=== PATIENT | female | born 1930 | race Caucasian/White ===

== ENCOUNTER 2018-02-25 21:42 | Emergency (ER) | payer MEDICARE, MEDICAID ==
[2018-02-25 23:32] LABS: CHLORIDE,CL 102 mmol/L (101-111); SODIUM,NA 134 mmol/L (135-145)
[2018-02-26] MEDS ORDERED: Acetaminophen 325 MG Tab PO ONE (00:08)
--- NOTE | 2018-02-26 00:08 | EDM.PDOC ---
ED HPI GENERAL MEDICAL PROBLEM - General Chief Complaint: Lower Extremity Injury/Pain Stated Complaint: KNEE INJURY Time Seen by Provider: 02/25/18 21:45 Source of Information: Reports: Patient, EMS, Family History Limitations: Reports: No Limitations - History of Present Illness INITIAL COMMENTS - FREE TEXT/NARRATIVE: C/o right knee and leg pain. Stated felt weak like legs were going to give out while getting out of bed, lowered self to ground to knees then crawled to kitchen, pressed medical alert as unable to get up. Denied falling. Had similar episode this am. No recent fever, chils. No NVD. no URI or urinary complaints. Lives at home alone. Right Leg Pain Score (Numeric/FACES): 7 - Related Data Allergies Allergy/AdvReac Type Severity Reaction Status Date / Time atorvastatin [From Lipitor] Allergy Muscle Verified 09/22/16 13:06 Aches erythromycin base Allergy Hives Verified 09/22/16 13:06 ezetimibe Allergy Cannot Verified 09/22/16 13:06 Remember fluvastatin Allergy Cannot Verified 09/22/16 13:06 Remember losartan Allergy Cannot Verified 09/22/16 13:06 Remember pravastatin Allergy Cannot Verified 09/22/16 13:06 Remember simvastatin Allergy Cannot Verified 09/22/16 13:06 Remember tramadol Allergy Cannot Verified 09/22/16 13:06 Remember Home Meds: Home Meds Insulin Glarg,Human.Rec.Analog [LantUS Solostar] 62 units SQ BEDTIME 09/22/16 [ History] Lisinopril [Zestril] 2.5 mg PO DAILY 09/22/16 [History] oxyCODONE HCl/Acetaminophen [Endocet 5-325 Tablet] 1 tab PO Q4H PRN 10/03/16 [ History] Past Medical History HEENT History: Reports: Cataract, Impaired Vision Musculoskeletal History: Reports: Other (See Below) Endocrine/Metabolic History: Reports: Diabetes, Type II - Past Surgical History HEENT Surgical History: Reports: Cataract Surgery GI Surgical History: Reports: Cholecystectomy Musculoskeletal Surgical History: Reports: None, Hip Replacement Social & Family History - Tobacco Use Smoking Status *Q: Never Smoker Second Hand Smoke Exposure: No - Caffeine Use Caffeine Use: Reports: Coffee, Tea - Recreational Drug Use Recreational Drug Use: No Review of Systems - Review of Systems Review Of Systems: ROS reveals no pertinent complaints other than HPI. ED EXAM, GENERAL - Physical Exam Exam: See Below Exam Limited By: No Limitations General Appearance: Alert, No Apparent Distress, Thin Eye Exam: Bilateral Eye: EOMI Ears: Normal External Exam, Normal TMs Nose: Normal Inspection Throat/Mouth: Normal Inspection Head: Atraumatic, Normocephalic Neck: Normal Inspection Respiratory/Chest: No Respiratory Distress, Lungs Clear, Normal Breath Sounds Cardiovascular: Normal Peripheral Pulses, Regular Rate, Rhythm, No Edema GI/Abdominal: Normal Bowel Sounds Back Exam: Normal Inspection. No: Paraspinal Tenderness, Vertebral Tenderness Extremities: Leg Pain (right knee) Neurological: Alert, Oriented, Normal Cognition, No Motor/Sensory Deficits Psychiatric: Normal Affect Skin Exam: Warm, Dry, Intact, Normal Color. No: Ecchymosis Course - Vital Signs Last Recorded V/S: Last Vital Signs Temp 98.4 F 02/26/18 00:12 Pulse 80 02/26/18 00:12 Resp 18 02/26/18 00:12 BP 113/62 02/26/18 00:12 Pulse Ox 95 02/26/18 00:12 - Orders/Labs/Meds Orders: Active Orders 24 hr Category Date Time Status UA W/MICROSCOPIC [URIN] Stat Lab 02/25/18 23:48 Ordered Labs: Laboratory Tests 02/25/18 02/25/18 02/25/18 Range/Units 22:50 22:50 23:48 WBC 8.5 (5.0-10.0) 10^3/uL RBC 4.59 (4.2-5.4) 10^6/uL Hgb 13.9 (12.0-16.0) g/dL Hct 40.9 (37.0-47.0) % MCV 89.1 (80-100) fL MCH 30.3 (27.0-34.0) pg MCHC 34.0 (33.0-35.0) g/dL Plt Count 208 (150-450) 10^3/uL Neut % (Auto) 61.7 (42.2-75.2) % Lymph % (Auto) 28.2 (20.5-50.1) % [place] % (Auto) 8.3 H (2-8) % Eos % (Auto) 1.6 (1.0-3.0) % Baso % (Auto) 0.2 (0.0-1.0) % Sodium 134 L (135-145) mmol/L Potassium 3.9 (3.6-5.0) mmol/L Chloride 102 (101-111) mmol/L Carbon Dioxide 25.0 (21.0-31.0) mmol/L Anion Gap 10.9 BUN 10 (7-18) mg/dL Creatinine 0.8 (0.6-1.3) mg/dL Est Cr Clr Drug Dosing TNP Estimated GFR (MDRD) > 60 BUN/Creatinine Ratio 12.50 Glucose 264 H (74-105) mg/dL Calcium 9.0 (8.4-10.2) mg/dl Total Bilirubin 0.5 (0.2-1.0) mg/dL AST 29 (10-42) IU/L ALT 22 (10-60) IU/L Alkaline Phosphatase 46 (42-121) IU/L Total Protein 6.5 L (6.7-8.2) g/dl Albumin 3.7 (3.2-5.5) g/dl Globulin 2.8 Albumin/Globulin Ratio 1.32 Urine Color Yellow (YELLOW) Urine Appearance Clear (CLEAR) Urine pH 7.5 (5.0-9.0) Ur Specific [place] 1.020 (1.005-1.030) Urine Protein Negative (NEGATIVE) Urine Glucose (UA) 100 H (NEGATIVE) Urine Ketones Trace H (NEGATIVE) Urine Occult Blood Negative (NEGATIVE) Urine Nitrite Negative (NEGATIVE) Urine Bilirubin Negative (NEGATIVE) Urine Urobilinogen 0.2 (0.2-1.0) mg/dL Ur Leukocyte Esterase Negative (NEGATIVE) Urine RBC 0-5 /HPF Urine WBC 0-5 (0-5/HPF) /HPF Ur Epithelial Cells Occasional /HPF Urine Bacteria Few (0-FEW/HPF) /HPF Meds: Medications Discontinued Medications Generic Name Dose Route Start Last Admin Trade Name Freq PRN Reason Stop Dose Admin Acetaminophen 650 mg 02/26/18 00:08 02/26/18 00:13 Tylenol PO 02/26/18 00:09 650 mg NOW ONE Administration - Radiology Interpretation Free Text/Narrative:: right knee and pelvis negative. - Re-Assessments/Exams Free Text/Narrative Re-Assessment/Exam: 02/26/18 04:18 Family at bedside results relayed. Recommend family to stay with patient tonight and better determine ability to maintain in home environment. Departure - Departure Time of Disposition: 00:03 Disposition: Home, Self-Care 01 Condition: Fair Clinical Impression: Weakness Knee pain, right Qualifiers: Chronicity: acute Qualified Code(s): M25.561 - Pain in right knee - Discharge Information Instructions: Knee Sprain, Adult, [id number] Referrals: Sonia Rand PA [Primary Care Provider] - Forms: ED Department Discharge Additional Instructions: ambulate with walker tylenol 650mg every 4 hours as needed for pain follow up if worsens - My Orders Last 24 Hours: My Active Orders 02/25/18 23:48 UA W/MICROSCOPIC [URIN] Stat - Assessment/Plan Last 24 Hours: My Active Orders 02/25/18 23:48 UA W/MICROSCOPIC [URIN] Stat
[2018-02-26 00:13] VITALS: BP 113/62
== END 2018-02-26 00:22 | disposition home or self-care (01) ==
LOC: DL.ED 21:42
DX: M25.561 Pain in right knee (principal); R53.1 Weakness; E11.9 Type 2 diabetes mellitus without complications; Z88.8 Allergy status to other drugs, medicaments and biological substances; Z88.1 Allergy status to other antibiotic agents; Z88.5 Allergy status to narcotic agent; Z79.4 Long term (current) use of insulin
CPT/HCPCS: 36415; 72192; 73562; 80053; 81001; 85025; 99284; A9270; 99283

== ENCOUNTER 2021-08-14 12:30 | Inpatient (IN) | payer MEDICARE, MEDICAID ==
[2021-08-14 13:29] LABS: ANION GAP 13.1 mEq/L (7-13); CHLORIDE,CL 104 mmol/L (98-107); SODIUM,NA 140 mmol/L (136-145)
--- NOTE | 2021-08-14 14:07 | CT ---
PROCEDURE INFORMATION: Exam: CT Head Without Contrast Exam date and time: 08/14/2021 12:56 PM Age: 89 years old Clinical indication: Dizziness TECHNIQUE: Imaging protocol: Computed tomography of the head without contrast. Radiation optimization: All CT scans at this facility use at least one of these dose optimization techniques: automated exposure control; mA and/or kV adjustment per patient size (includes targeted exams where dose is matched to clinical indication); or iterative reconstruction. COMPARISON: CT Head wo Cont 08/10/2015 12:29 AM FINDINGS: Brain: Atrophy. No hemorrhage. Chronic periventricular white matter changes.. No mass effect. Cerebral ventricles: Stable asymmetric enlargement of the left ventricle. Paranasal sinuses: Visualized sinuses are unremarkable. No fluid levels. Mastoid air cells: Visualized mastoid air cells are well aerated. Bones/joints: Unremarkable. No acute fracture. Soft tissues: Unremarkable. IMPRESSION: No acute intracranial abnormality.
[2021-08-14] MEDS ORDERED: Meclizine 12.5 MG Tab PO ONE (14:50)
[2021-08-14] MEDS ORDERED: Sodium Chloride 0.9% 500 ML IV SCH (15:00)
--- NOTE | 2021-08-14 16:58 | PCM.HP ---
H&P History of Present Illness - General Date of Service: 08/14/21 Source of Information: Patient, Old Records, Provider (ER) History Limitations: Reports: Other (poor historian) - History of Present Illness Initial Comments - Free Text/Narative: Patient was brought to ER form her assisted living with c/o waking this morning with "room spin" dizziness. Denies fall or head injury. Denies chest pain, rapid or irregular HR, N/V/D, fever, chills, cough, SOB, or dysuria. She reports similar episode in the past. Pt states that laying still alleviates the dizziness. Moving her body, or even head movement makes the dizziness worse. She laid on her bed all day to minimize the dizziness, and she missed her insulin then finally called the ambulance. CT in ER showed no acute findings. Pt was prescribed Meclizine in ER and she is now symptoms free. - Related Data Allergies/Adverse Reactions: Allergies Allergy/AdvReac Type Severity Reaction Status Date / Time atorvastatin [From Lipitor] Allergy Muscle Verified 08/14/21 12:43 Aches erythromycin base Allergy Hives Verified 08/14/21 12:43 ezetimibe Allergy Cannot Verified 08/14/21 12:43 Remember fluvastatin Allergy Cannot Verified 08/14/21 12:43 Remember losartan Allergy Cannot Verified 08/14/21 12:43 Remember pravastatin Allergy Cannot Verified 08/14/21 12:43 Remember simvastatin Allergy Cannot Verified 08/14/21 12:43 Remember tramadol Allergy Cannot Verified 08/14/21 12:43 Remember Home Medications: Home Meds Acetaminophen [Tylenol Extra Strength] 500 mg PO Q4H PRN 08/14/21 [History] Ascorbic Acid [Vitamin C] 500 mg PO DAILY 08/14/21 [History] Aspirin [Halfprin] 81 mg PO DAILY 08/14/21 [History] Ca/D3/Mag Ox/Zinc/Event Av Operator/Octavio/Bor [Calcium 600-D3 Plus Caplet] 1 tab PO DAILY 08/14/21 [History] Calcium Carbonate [Tums] 500 mg PO Q4H PRN 08/14/21 [History] DULoxetine HCl [Cymbalta] 30 mg PO DAILY 08/14/21 [History] Diclofenac Sodium [Voltaren Arthritis Pain] 1 applic TOP Q12H PRN 08/14/21 [History] Fish Oil/DHA/EPA [Fish Oil 1,200 MG] 1 cap PO DAILY 08/14/21 [History] Insulin Glarg,Human.Rec.Analog [Lantus] 37 units SQ DAILY 08/14/21 [History] Magnesium Hydroxide [Milk of Magnesia] 30 ml PO DAILY PRN 08/14/21 [History] Multivitamin [Multi-Day Vitamins] 1 tab PO DAILY 08/14/21 [History] metFORMIN [Glucophage XR] 500 mg PO BIDMEALS 08/14/21 [History] polyethylene glycoL 3350 [MiraLAX] 1 pack PO DAILY PRN 08/14/21 [History] Past Medical History HEENT History: Reports: Cataract, Impaired Vision Musculoskeletal History: Reports: Other (See Below) Endocrine/Metabolic History: Reports: Diabetes, Type II - Past Surgical History HEENT Surgical History: Reports: Cataract Surgery GI Surgical History: Reports: Cholecystectomy Musculoskeletal Surgical History: Reports: None, Hip Replacement Social & Family History - Tobacco Use Tobacco Use Status *Q: Never Tobacco User Second Hand Smoke Exposure: No - Caffeine Use Caffeine Use: Reports: None - Recreational Drug Use Recreational Drug Use: No H&P Review of Systems - Review of Systems: Review Of Systems: Unable To Obtain Reason Not Obtained: poor historian General: Denies: Fever, Chills HEENT: Reports: Vertigo Pulmonary: Denies: Shortness of Breath Cardiovascular: Denies: Chest Pain Gastrointestinal: Denies: Abdominal Pain, Nausea Genitourinary: Denies: Dysuria Psychiatric: Denies: Confusion Neurological: Denies: Confusion Exam - Exam Exam: See Below - Vital Signs Vital Signs: Last Vital Signs Temp 98.1 F 08/14/21 12:43 Pulse 84 08/14/21 12:43 Resp 20 08/14/21 12:43 BP 131/67 08/14/21 12:43 Pulse Ox 99 08/14/21 12:43 Weight: 171 lb - Exam Quality Assessment: No: Supplemental Oxygen General: Alert, Oriented, Cooperative. No: Mild Distress HEENT: EOMI Neck: Supple Cardiovascular: Regular Rate, Regular Rhythm GI/Abdominal Exam: Soft, Non-Tender (Female) Exam: Deferred Back Exam: Normal Inspection Extremities: Normal Inspection, No Pedal Edema Skin: Warm, Dry Neurological: Cranial Nerves Intact Neuro Extensive - Mental Status: Alert, Oriented x3 - Patient Data Lab Results Last 24 hrs: Laboratory Results - last 24 hr 08/14/21 08/14/21 08/14/21 Range/Units 12:38 13:02 13:02 WBC 7.1 (5.0-10.0) 10^3/uL RBC 4.69 (4.2-5.4) 10^6/uL Hgb 14.4 (12.0-16.0) g/dL Hct 43.9 (37.0-47.0) % MCV 93.6 D (80-100) fL MCH 30.7 (27.0-34.0) pg MCHC 32.8 L (33.0-35.0) g/dL Plt Count 234 (150-450) 10^3/uL Neut % (Auto) 58.8 (42.2-75.2) % Lymph % (Auto) 30.0 (20.5-50.1) % [place] % (Auto) 8.5 H (2-8) % Eos % (Auto) 2.1 (1.0-3.0) % Baso % (Auto) 0.6 (0.0-1.0) % Sodium 140 (136-145) mmol/L Potassium 4.1 (3.5-5.1) mmol/L Chloride 104 (98-107) mmol/L Carbon Dioxide 27 (21-32) mmol/L Anion Gap 13.1 H (7-13) mEq/L BUN 15 (7-18) mg/dL Creatinine 1.03 H (0.55-1.02) mg/dL Est Cr Clr Drug Dosing TNP Estimated GFR (MDRD) 50 BUN/Creatinine Ratio 14.6 (No establ ref range) Glucose 133 H (70-99) mg/dL POC Glucose 125 H (70-99) mg/dL Calcium 8.9 (8.5-10.1) mg/dL Magnesium 2.0 (1.8-2.4) mg/dL Total Bilirubin 0.3 (0.2-1.0) mg/dL AST 18 (15-37) U/L ALT 28 (14-59) U/L Alkaline Phosphatase 70 (46-116) U/L Troponin I High Sens 18 (<=51) pg/mL Total Protein 7.1 (6.4-8.2) g/dL Albumin 2.4 L (3.4-5.0) g/dL Globulin 4.7 Albumin/Globulin Ratio 0.51 SARS CoV-2 RNA Rapid JAVI (NEGATIVE) 08/14/21 Range/Units 15:09 WBC (5.0-10.0) 10^3/uL RBC (4.2-5.4) 10^6/uL Hgb (12.0-16.0) g/dL Hct (37.0-47.0) % MCV (80-100) fL MCH (27.0-34.0) pg MCHC (33.0-35.0) g/dL Plt Count (150-450) 10^3/uL Neut % (Auto) (42.2-75.2) % Lymph % (Auto) (20.5-50.1) % [place] % (Auto) (2-8) % Eos % (Auto) (1.0-3.0) % Baso % (Auto) (0.0-1.0) % Sodium (136-145) mmol/L Potassium (3.5-5.1) mmol/L Chloride (98-107) mmol/L Carbon Dioxide (21-32) mmol/L Anion Gap (7-13) mEq/L BUN (7-18) mg/dL Creatinine (0.55-1.02) mg/dL Est Cr Clr Drug Dosing Estimated GFR (MDRD) BUN/Creatinine Ratio (No establ ref range) Glucose (70-99) mg/dL POC Glucose (70-99) mg/dL Calcium (8.5-10.1) mg/dL Magnesium (1.8-2.4) mg/dL Total Bilirubin (0.2-1.0) mg/dL AST (15-37) U/L ALT (14-59) U/L Alkaline Phosphatase (46-116) U/L Troponin I High Sens (<=51) pg/mL Total Protein (6.4-8.2) g/dL Albumin (3.4-5.0) g/dL Globulin Albumin/Globulin Ratio SARS CoV-2 RNA Rapid JAVI Negative (NEGATIVE) Result Diagrams: 08/14/21 13:02 08/14/21 13:02 Imaging Impressions Last 24 hrs: CT brqain: no acute. ECG: Sinus rhythm Problem List Initiated/Reviewed/Updated: Yes Orders Last 24hrs: Active Orders 24 hr Category Date Time Status Blood Glucose Check, Bedside [RC] ONETIME Care 08/14/21 12:49 Active Orthostatic Vital Signs [RC] ASDIRECTED Care 08/14/21 12:50 Active UA RFX ABEL AND CULT IF INDIC [URIN] Stat Lab 08/14/21 14:47 Ordered Sodium Chloride 0.9% [Normal Saline] 500 ml Med 08/14/21 15:00 Active IV .BOLUS Medication Orders Sodium Chloride (Normal Saline) 500 mls @ 500 mls/hr IV .BOLUS ROHAN Last Admin: 08/14/21 14:58 Dose: 500 mls/hr Documented by: TRU Assessment/Plan Comment:: Vertigo/ at risk for falls ; admitted for observation. PT/OT evaluation. Meclizine 25 mg BID PRN. 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 DVT prophylaxis : Lovenox. DNR /DNI as per assisted living record.
[2021-08-14] MEDS ORDERED: Calcium Carbonate 500 MG Tab.Chew PO PRN (17:10)
[2021-08-14] MEDS ORDERED: Glucagon,Human Recombinant 1 MG Vial IM PRN (17:10)
[2021-08-14] MEDS ORDERED: Magnesium Hydroxide 400 MG/5 ML Susp 30 ML Cup PO PRN (17:10)
[2021-08-14] MEDS ORDERED: DICLOFENAC SODIUM TOP PRN (17:10)
[2021-08-14] MEDS ORDERED: Polyethylene Glycol 3350 Powder 17 GM Packet PO PRN (17:10)
[2021-08-14] MEDS ORDERED: 50% Dextrose in Water 50 ML Syringe IVPUSH PRN (17:10)
[2021-08-14] MEDS ORDERED: Acetaminophen 325 MG Tab PO PRN (17:12)
[2021-08-14] MEDS ORDERED: Ondansetron 4 MG/2 ML SDV IVPUSH PRN (17:12)
[2021-08-14] MEDS ORDERED: Docusate Sodium 100 MG Cap PO PRN (17:12)
[2021-08-14] MEDS ORDERED: Meclizine 12.5 MG Tab PO PRN (17:25)
[2021-08-14] MEDS ORDERED: cefTRIAXone 1 GM Vial ONE (19:46)
[2021-08-14] MEDS: cefTRIAXone 1 GM in Sodium Chloride 0.9% 50 ML IV SCH (19:59)
[2021-08-15] MEDS: Acetaminophen 500 MG Tab PO PRN (03:22)
--- NOTE | 2021-08-15 08:31 | EDM.PDOC ---
Scribed by Brittany Olivares 08/14/21 [id number] for Xiomara Sandhu MD ED HPI GENERAL MEDICAL PROBLEM - General Chief Complaint: General Stated Complaint: IN BY AMBULANCE Time Seen by Provider: 08/14/21 12:36 Source of Information: Reports: Patient, EMS, EMS Notes Reviewed, RN, RN Notes Reviewed History Limitations: Reports: No Limitations - History of Present Illness INITIAL COMMENTS - FREE TEXT/NARRATIVE: Patient arrives by [facility] with c/o waking this morning with "room spin" dizziness. Denies fall or head injury. Denies chest pain, rapid or irregular HR, N/V/D, fever, chills, cough, SOB, or dysuria. Denies headache, visual changes, sinus pain/pressure, congestion, or neck pain. Denies Hx of vertigo. Pt states that laying still alleviates the dizziness. Moving her body, or even head movement makes the dizziness worse. She laid on her bed all day to minimize the dizziness, then finally called the ambulance. Duration: Constant Location: Reports: Generalized Quality: Reports: Other (Denies pain) Severity: Moderate Associated Symptoms: Reports: No Other Symptoms - Related Data Allergies Allergy/AdvReac Type Severity Reaction Status Date / Time atorvastatin [From Lipitor] Allergy Muscle Verified 08/14/21 12:43 Aches erythromycin base Allergy Hives Verified 08/14/21 12:43 ezetimibe Allergy Cannot Verified 08/14/21 12:43 Remember fluvastatin Allergy Cannot Verified 08/14/21 12:43 Remember losartan Allergy Cannot Verified 08/14/21 12:43 Remember pravastatin Allergy Cannot Verified 08/14/21 12:43 Remember simvastatin Allergy Cannot Verified 08/14/21 12:43 Remember tramadol Allergy Cannot Verified 08/14/21 12:43 Remember Home Meds: Home Meds Acetaminophen [Tylenol Extra Strength] 500 mg PO Q4H PRN 08/14/21 [History] Ascorbic Acid [Vitamin C] 500 mg PO DAILY 08/14/21 [History] Aspirin [Halfprin] 81 mg PO DAILY 08/14/21 [History] Ca/D3/Mag Ox/Zinc/Studio Model/Octavio/Bor [Calcium 600-D3 Plus Caplet] 1 tab PO DAILY 08/14/21 [History] Calcium Carbonate [Tums] 500 mg PO Q4H PRN 08/14/21 [History] DULoxetine HCl [Cymbalta] 30 mg PO DAILY 08/14/21 [History] Diclofenac Sodium [Voltaren Arthritis Pain] 1 applic TOP Q12H PRN 08/14/21 [History] Fish Oil/DHA/EPA [Fish Oil 1,200 MG] 1 cap PO DAILY 08/14/21 [History] Insulin Glarg,Human.Rec.Analog [Lantus] 37 units SQ DAILY 08/14/21 [History] Magnesium Hydroxide [Milk of Magnesia] 30 ml PO DAILY PRN 08/14/21 [History] Multivitamin [Multi-Day Vitamins] 1 tab PO DAILY 08/14/21 [History] metFORMIN [Glucophage XR] 500 mg PO BIDMEALS 08/14/21 [History] polyethylene glycoL 3350 [MiraLAX] 1 pack PO DAILY PRN 08/14/21 [History] Past Medical History HEENT History: Reports: Cataract, Impaired Vision Musculoskeletal History: Reports: Other (See Below) Endocrine/Metabolic History: 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 ED EXAM, GENERAL - Physical Exam Exam: See Below Exam Limited By: No Limitations General Appearance: Alert, No Apparent Distress, Other (Frail elderly appearing) Eye Exam: Bilateral Eye: EOMI, Nystagmus (left lateral gaze), PERRL Ears: Normal External Exam, Hearing Grossly Normal Nose: Normal Inspection, Normal Mucosa, No Blood Throat/Mouth: Normal Inspection, Normal Lips, Normal Voice, No Airway Compromise Head: Atraumatic, Normocephalic Neck: Normal Inspection, Non-Tender, Full Range of Motion Respiratory/Chest: No Respiratory Distress, No Accessory Muscle Use, Chest Non-Tender, Decreased Breath Sounds Cardiovascular: Regular Rate, Rhythm, No Edema GI/Abdominal: Normal Bowel Sounds, Soft, Non-Tender Back Exam: Normal Inspection Extremities: Normal Inspection Neurological: Alert, Oriented, CN II-XII Intact, Normal Cognition, No Motor/Sensory Deficits Psychiatric: Normal Mood, Flat Affect Skin Exam: Warm, Dry, Intact, Normal Color, No Rash #1 Interpretation EKG Date: 08/14/21 Time: 13:30 Rhythm: Other (sinus rhythm) Rate (Beats/Min): 84 [place]: Normal P-Wave: Present QRS: Other (inferior and anterior Q wave.) ST-T: Normal QT: Normal NH/PQ Interval: Prolonged NH interval. Course - Vital Signs Last Recorded V/S: Last Vital Signs Temp 98.0 F 08/15/21 04:00 Pulse 94 08/15/21 04:00 Resp 23 H 08/15/21 04:00 BP 113/81 08/15/21 04:00 Pulse Ox 94 L 08/15/21 04:00 - Orders/Labs/Meds Orders: Active Orders 24 hr Category Date Time Status Orthostatic Vital Signs [RC] ASDIRECTED Care 08/14/21 12:50 Active CULTURE URINE [RM] Stat Lab 08/14/21 17:00 Results Medication Orders Acetaminophen (Acetaminophen 500 Mg Tab) 500 mg PO Q4H PRN PRN Reason: Pain Last Admin: 08/15/21 03:22 Dose: 500 mg Documented by: REGINE Acetaminophen (Acetaminophen 325 Mg Tab) 650 mg PO Q4H PRN PRN Reason: Pain (Mild 1-3)/fever Ascorbic Acid (Ascorbic Acid 500 Mg Tab) 500 mg PO DAILY [facility] Aspirin (Aspirin 81 Mg Tab.Ec) 81 mg PO DAILY [facility] Calcium Carbonate (Calcium Carbonate/Vitamin D3 1250 Mg-5 Mcg Tab) 1 tab PO DAILY [facility] Calcium Carbonate/Glycine (Calcium Carbonate 500 Mg Tab.Chew) 500 mg PO Q4H PRN PRN Reason: Heartburn Dextrose/Water (50% Dextrose In Water 50 Ml Syringe) 50 ml IVPUSH Q15M PRN PRN Reason: Hypoglycemia Docusate Sodium (Docusate Sodium 100 Mg Cap) 100 mg PO BID PRN PRN Reason: Constipation Duloxetine HCl (Duloxetine 30 Mg Cap) 30 mg PO DAILY [facility] Enoxaparin Sodium (Enoxaparin 40 Mg/0.4 Ml Syringe) 40 mg SUBCUT DAILY [facility] Glucagon (Glucagon,Human Recombinant 1 Mg Vial) 1 mg IM Q15M PRN PRN Reason: Hypoglycemia Ceftriaxone Sodium 1 gm/ (Sodium Chloride) 50 mls @ 100 mls/hr IV Q24H ROHAN Last Admin: 08/14/21 19:59 Dose: 100 mls/hr Documented by: REGINE Insulin Glargine (Insulin Glarg,Human.Rec.Analog 100 Unit/Ml) 37 unit SUBCUT DAILY [facility] Magnesium Hydroxide (Magnesium Hydroxide 400 Mg/5 Ml Susp 30 Ml Cup) 30 ml PO DAILY PRN PRN Reason: Constipation Meclizine HCl (Meclizine 12.5 Mg Tab) 25 mg PO Q12H PRN PRN Reason: vertigo Multivitamins/Minerals/Vitamin C (Multivitamin Tab) 1 tab PO DAILY [facility] Non-Formulary Medication (Diclofenac Sodium [Voltaren Arthritis Pain]) 1 applic TOP Q12H PRN PRN Reason: Low Back Pain Ondansetron HCl (Ondansetron 4 Mg/2 Ml Sdv) 4 mg IVPUSH Q6H PRN PRN Reason: Nausea/Vomiting Polyethylene Glycol (Polyethylene Glycol 3350 Powder 17 Gm Packet) 17 gm PO DAILY PRN PRN Reason: Constipation Labs: Laboratory Tests 08/14/21 08/14/21 08/14/21 Range/Units 12:38 13:02 13:02 WBC 7.1 (5.0-10.0) 10^3/uL RBC 4.69 (4.2-5.4) 10^6/uL Hgb 14.4 (12.0-16.0) g/dL Hct 43.9 (37.0-47.0) % MCV 93.6 D (80-100) fL MCH 30.7 (27.0-34.0) pg MCHC 32.8 L (33.0-35.0) g/dL Plt Count 234 (150-450) 10^3/uL Neut % (Auto) 58.8 (42.2-75.2) % Lymph % (Auto) 30.0 (20.5-50.1) % [place] % (Auto) 8.5 H (2-8) % Eos % (Auto) 2.1 (1.0-3.0) % Baso % (Auto) 0.6 (0.0-1.0) % Sodium 140 (136-145) mmol/L Potassium 4.1 (3.5-5.1) mmol/L Chloride 104 (98-107) mmol/L Carbon Dioxide 27 (21-32) mmol/L Anion Gap 13.1 H (7-13) mEq/L BUN 15 (7-18) mg/dL Creatinine 1.03 H (0.55-1.02) mg/dL Est Cr Clr Drug Dosing TNP Estimated GFR (MDRD) 50 BUN/Creatinine Ratio 14.6 (No establ ref range) Glucose 133 H (70-99) mg/dL POC Glucose 125 H (70-99) mg/dL Calcium 8.9 (8.5-10.1) mg/dL Magnesium 2.0 (1.8-2.4) mg/dL Total Bilirubin 0.3 (0.2-1.0) mg/dL AST 18 (15-37) U/L ALT 28 (14-59) U/L Alkaline Phosphatase 70 (46-116) U/L Troponin I High Sens 18 (<=51) pg/mL Total Protein 7.1 (6.4-8.2) g/dL Albumin 2.4 L (3.4-5.0) g/dL Globulin 4.7 Albumin/Globulin Ratio 0.51 SARS CoV-2 RNA Rapid JAVI (NEGATIVE) 08/14/21 Range/Units 15:09 WBC (5.0-10.0) 10^3/uL RBC (4.2-5.4) 10^6/uL Hgb (12.0-16.0) g/dL Hct (37.0-47.0) % MCV (80-100) fL MCH (27.0-34.0) pg MCHC (33.0-35.0) g/dL Plt Count (150-450) 10^3/uL Neut % (Auto) (42.2-75.2) % Lymph % (Auto) (20.5-50.1) % [place] % (Auto) (2-8) % Eos % (Auto) (1.0-3.0) % Baso % (Auto) (0.0-1.0) % Sodium (136-145) mmol/L Potassium (3.5-5.1) mmol/L Chloride (98-107) mmol/L Carbon Dioxide (21-32) mmol/L Anion Gap (7-13) mEq/L BUN (7-18) mg/dL Creatinine (0.55-1.02) mg/dL Est Cr Clr Drug Dosing Estimated GFR (MDRD) BUN/Creatinine Ratio (No establ ref range) Glucose (70-99) mg/dL POC Glucose (70-99) mg/dL Calcium (8.5-10.1) mg/dL Magnesium (1.8-2.4) mg/dL Total Bilirubin (0.2-1.0) mg/dL AST (15-37) U/L ALT (14-59) U/L Alkaline Phosphatase (46-116) U/L Troponin I High Sens (<=51) pg/mL Total Protein (6.4-8.2) g/dL Albumin (3.4-5.0) g/dL Globulin Albumin/Globulin Ratio SARS CoV-2 RNA Rapid JAVI Negative (NEGATIVE) Meds: Medications Generic Name Dose Route Start Last Admin Trade Name Freq PRN Reason Stop Dose Admin Acetaminophen 500 mg 08/14/21 17:10 08/15/21 03:22 Acetaminophen 500 Mg Tab PO 500 mg Q4H PRN Administration Pain Acetaminophen 650 mg 08/14/21 17:12 Acetaminophen 325 Mg Tab PO Q4H PRN Pain (Mild 1-3)/fever Ascorbic Acid 500 mg 08/15/21 09:00 Ascorbic Acid 500 Mg Tab PO DAILY [facility] Aspirin 81 mg 08/15/21 09:00 Aspirin 81 Mg Tab.Ec PO DAILY [facility] Calcium Carbonate 1 tab 08/15/21 09:00 Calcium Carbonate/Vitamin D3 1250 Mg-5 Mcg Tab PO DAILY [facility] Calcium Carbonate/Glycine 500 mg 08/14/21 17:10 Calcium Carbonate 500 Mg Tab.Chew PO Q4H PRN Heartburn Dextrose/Water 50 ml 08/14/21 17:10 50% Dextrose In Water 50 Ml Syringe IVPUSH Q15M PRN Hypoglycemia Docusate Sodium 100 mg 08/14/21 17:12 Docusate Sodium 100 Mg Cap PO BID PRN Constipation Duloxetine HCl 30 mg 08/15/21 09:00 Duloxetine 30 Mg Cap PO DAILY [facility] Enoxaparin Sodium 40 mg 08/15/21 09:00 Enoxaparin 40 Mg/0.4 Ml Syringe SUBCUT DAILY [facility] Glucagon 1 mg 08/14/21 17:10 Glucagon,Human Recombinant 1 Mg Vial IM Q15M PRN Hypoglycemia Ceftriaxone Sodium 1 gm/ 50 mls @ 100 mls/hr 08/14/21 19:00 08/14/21 19:59 Sodium Chloride IV 100 mls/hr Q24H ROHAN Administration Insulin Glargine 37 unit 08/15/21 09:00 Insulin Glarg,Human.Rec.Analog 100 Unit/Ml SUBCUT DAILY [facility] Magnesium Hydroxide 30 ml 08/14/21 17:10 Magnesium Hydroxide 400 Mg/5 Ml Susp 30 Ml Cup PO DAILY PRN Constipation Meclizine HCl 25 mg 08/14/21 17:25 Meclizine 12.5 Mg Tab PO Q12H PRN vertigo Multivitamins/Minerals/Vitamin C 1 tab 08/15/21 09:00 Multivitamin Tab PO DAILY [facility] Non-Formulary Medication 1 applic 08/14/21 17:10 Diclofenac Sodium [Voltaren Arthritis Pain] TOP Q12H PRN Low Back Pain Ondansetron HCl 4 mg 08/14/21 17:12 Ondansetron 4 Mg/2 Ml Sdv IVPUSH Q6H PRN Nausea/Vomiting Polyethylene Glycol 17 gm 08/14/21 17:10 Polyethylene Glycol 3350 Powder 17 Gm Packet PO DAILY PRN Constipation Discontinued Medications Generic Name Dose Route Start Last Admin Trade Name Freq PRN Reason Stop Dose Admin Ceftriaxone Sodium Confirm 08/14/21 19:46 08/14/21 20:11 Ceftriaxone 1 Gm Vial Administered 08/14/21 19:47 Not Given Dose 1 gm .ROUTE .STK-MED ONE Sodium Chloride 500 mls @ 500 mls/hr 08/14/21 15:00 08/14/21 18:03 Normal Saline IV Infused .BOLUS ROHAN Infusion Meclizine HCl 25 mg 08/14/21 14:50 08/14/21 14:59 Meclizine 12.5 Mg Tab PO 08/14/21 14:51 25 mg ONETIME ONE Administration - Radiology Interpretation Free Text/Narrative:: [facility] [place] [facility] Final Radiology Report Call: [phone] assistance Online chat: [email or web address] Name: JANAK ROSSI Age: 89Years F Date: 08/14/2021 SSN: -- : [id number] Study: CT HEAD WO CONT Requesting Physician: XIOMARA SANDHU Images: [id number] Addl Studies: Provided Clinical History: Dizziness Contrast: Without Contrast Medium: Contrast Amount: Contrast Method: CONFIDENTIALITY STATEMENT This report is intended only for use by the referring physician, and only in accordance with law. If you received this in error, call [phone]. Page 1 of 1 PROCEDURE INFORMATION: Exam: CT Head Without Contrast Exam date and time: 08/14/2021 12:56 PM Age: 89 years old Clinical indication: Dizziness TECHNIQUE: Imaging protocol: Computed tomography of the head without contrast. Radiation optimization: All CT scans at this facility use at least one of these dose optimization techniques: automated exposure control; mA and/or kV adjustment per patient size (includes targeted exams where dose is matched to clinical indication); or iterative reconstruction. COMPARISON: CT Head wo Cont 08/10/2015 12:29 AM FINDINGS: Brain: Atrophy. No hemorrhage. Chronic periventricular white matter changes.. No mass effect. Cerebral ventricles: Stable asymmetric enlargement of the left ventricle. Paranasal sinuses: Visualized sinuses are unremarkable. No fluid levels. Mastoid air cells: Visualized mastoid air cells are well aerated. Bones/joints: Unremarkable. No acute fracture. Soft tissues: Unremarkable. IMPRESSION: No acute intracranial abnormality. Thank you for allowing us to participate in the care of your patient. Dictated and Authenticated by: Hardy Velazco MD 08/14/2021 2:06 PM Central Time ([place]) - Re-Assessments/Exams Free Text/Narrative Re-Assessment/Exam: 08/14/21 Pt to be admitted to observation due to dizziness and gen. weakness. Unable to collect urine, and needs to have UTI ruled out. Pt will be admitted to Dr. Lauren. Departure - Departure Time of Disposition: 14:30 (admitted to Dr. Lauren) Disposition: Refer to Observation Condition: Good Clinical Impression: Dizziness - Discharge Information - My Orders Last 24 Hours: My Active Orders 08/14/21 12:50 Orthostatic Vital Signs [RC] ASDIRECTED 08/14/21 17:00 CULTURE URINE [RM] Stat - Assessment/Plan Last 24 Hours: My Active Orders 08/14/21 12:50 Orthostatic Vital Signs [RC] ASDIRECTED 08/14/21 17:00 CULTURE URINE [RM] Stat I have read and agree with the documentation that has been completed regarding this visit. By signing this record, I attest that the documentation was completed in my physical presence and is an accurate record of the encounter.
[2021-08-15] MEDS: Insulin Glarg,Human.Rec.Analog 100 Unit/ML SUBCUT SCH (10:13)
[2021-08-15] MEDS: DULoxetine 30 MG Cap PO SCH (10:14)
[2021-08-15] MEDS: Calcium Carbonate/Vitamin D3 1250 MG-5 MCG Tab PO SCH (10:14)
[2021-08-15] MEDS: Multivitamin Tab PO SCH (10:14)
[2021-08-15] MEDS: Aspirin 81 MG Tab.EC PO SCH (10:14)
[2021-08-15] MEDS: Enoxaparin 40 MG/0.4 ML Syringe SUBCUT SCH (10:14)
[2021-08-15] MEDS: Ascorbic Acid 500 MG Tab PO SCH (10:14)
--- NOTE | 2021-08-15 13:07 | PCM.PN ---
- General Info Date of Service: 08/15/21 Subjective Update: feeling much better, requesting to go home. no more dizziness. Functional Status: Reports: Pain Controlled, Tolerating Diet, Ambulating (slowly) - Review of Systems General: Denies: Fever, Weakness Pulmonary: Denies: Shortness of Breath Cardiovascular: Denies: Chest Pain Gastrointestinal: Denies: Abdominal Pain Genitourinary: Denies: Dysuria Neurological: Denies: Confusion Psychiatric: Denies: Confusion - Patient Data Vitals - Most Recent: Last Vital Signs Temp 97.8 F 08/15/21 12:00 Pulse 90 08/15/21 12:00 Resp 20 08/15/21 12:00 BP 122/65 08/15/21 12:00 Pulse Ox 95 08/15/21 12:00 Orthostatic Blood Pressure [ 149/72 Standing] Orthostatic Blood Pressure [ 105/62 Sitting] Orthostatic Blood Pressure [ 121/57 Supine] Weight - Most Recent: 160 lb 4.8 oz I&O - Last 24 Hours: Intake & Output 08/14/21 08/15/21 08/15/21 22:59 06:59 14:59 Intake Total 400 Output Total 800 1375 Balance -800 -975 Lab Results Last 24 Hours: Laboratory Results - last 24 hr 08/14/21 08/14/21 08/14/21 Range/Units 13:02 13:02 15:09 WBC 7.1 (5.0-10.0) 10^3/uL RBC 4.69 (4.2-5.4) 10^6/uL Hgb 14.4 (12.0-16.0) g/dL Hct 43.9 (37.0-47.0) % MCV 93.6 D (80-100) fL MCH 30.7 (27.0-34.0) pg MCHC 32.8 L (33.0-35.0) g/dL Plt Count 234 (150-450) 10^3/uL Neut % (Auto) 58.8 (42.2-75.2) % Lymph % (Auto) 30.0 (20.5-50.1) % [place] % (Auto) 8.5 H (2-8) % Eos % (Auto) 2.1 (1.0-3.0) % Baso % (Auto) 0.6 (0.0-1.0) % Sodium 140 (136-145) mmol/L Potassium 4.1 (3.5-5.1) mmol/L Chloride 104 (98-107) mmol/L Carbon Dioxide 27 (21-32) mmol/L Anion Gap 13.1 H (7-13) mEq/L BUN 15 (7-18) mg/dL Creatinine 1.03 H (0.55-1.02) mg/dL Est Cr Clr Drug Dosing TNP Estimated GFR (MDRD) 50 BUN/Creatinine Ratio 14.6 (No establ ref range) Glucose 133 H (70-99) mg/dL POC Glucose (70-99) mg/dL Calcium 8.9 (8.5-10.1) mg/dL Magnesium 2.0 (1.8-2.4) mg/dL Total Bilirubin 0.3 (0.2-1.0) mg/dL AST 18 (15-37) U/L ALT 28 (14-59) U/L Alkaline Phosphatase 70 (46-116) U/L Troponin I High Sens 18 (<=51) pg/mL Total Protein 7.1 (6.4-8.2) g/dL Albumin 2.4 L (3.4-5.0) g/dL Globulin 4.7 Albumin/Globulin Ratio 0.51 Urine Color (YELLOW) Urine Appearance (CLEAR) Urine pH (5.0-9.0) Ur Specific [place] (1.005-1.030) Urine Protein (NEGATIVE) Urine Glucose (UA) (NEGATIVE) Urine Ketones (NEGATIVE) Urine Occult Blood (NEGATIVE) Urine Nitrite (NEGATIVE) Urine Bilirubin (NEGATIVE) Urine Urobilinogen (0.2-1.0) mg/dL Ur Leukocyte Esterase (NEGATIVE) Urine RBC (0-5) /HPF Urine WBC (0-5/HPF) /HPF Ur Epithelial Cells (NOT SEEN) /HPF Urine Bacteria (0-FEW/HPF) /HPF SARS CoV-2 RNA Rapid JAVI Negative (NEGATIVE) 08/14/21 08/14/21 08/15/21 Range/Units 17:00 20:41 00:08 WBC (5.0-10.0) 10^3/uL RBC (4.2-5.4) 10^6/uL Hgb (12.0-16.0) g/dL Hct (37.0-47.0) % MCV (80-100) fL MCH (27.0-34.0) pg MCHC (33.0-35.0) g/dL Plt Count (150-450) 10^3/uL Neut % (Auto) (42.2-75.2) % Lymph % (Auto) (20.5-50.1) % [place] % (Auto) (2-8) % Eos % (Auto) (1.0-3.0) % Baso % (Auto) (0.0-1.0) % Sodium (136-145) mmol/L Potassium (3.5-5.1) mmol/L Chloride (98-107) mmol/L Carbon Dioxide (21-32) mmol/L Anion Gap (7-13) mEq/L BUN (7-18) mg/dL Creatinine (0.55-1.02) mg/dL Est Cr Clr Drug Dosing Estimated GFR (MDRD) BUN/Creatinine Ratio (No establ ref range) Glucose (70-99) mg/dL POC Glucose 188 H 136 H (70-99) mg/dL Calcium (8.5-10.1) mg/dL Magnesium (1.8-2.4) mg/dL Total Bilirubin (0.2-1.0) mg/dL AST (15-37) U/L ALT (14-59) U/L Alkaline Phosphatase (46-116) U/L Troponin I High Sens (<=51) pg/mL Total Protein (6.4-8.2) g/dL Albumin (3.4-5.0) g/dL Globulin Albumin/Globulin Ratio Urine Color Yellow (YELLOW) Urine Appearance Cloudy (CLEAR) Urine pH 7.5 (5.0-9.0) Ur Specific [place] 1.020 (1.005-1.030) Urine Protein Negative (NEGATIVE) Urine Glucose (UA) Negative (NEGATIVE) Urine Ketones Negative (NEGATIVE) Urine Occult Blood Trace-intact H (NEGATIVE) Urine Nitrite Positive H (NEGATIVE) Urine Bilirubin Negative (NEGATIVE) Urine Urobilinogen 0.2 (0.2-1.0) mg/dL Ur Leukocyte Esterase Large H (NEGATIVE) Urine RBC 0-5 (0-5) /HPF Urine WBC >100 H (0-5/HPF) /HPF Ur Epithelial Cells Few (NOT SEEN) /HPF Urine Bacteria Many H (0-FEW/HPF) /HPF SARS CoV-2 RNA Rapid JAVI (NEGATIVE) 08/15/21 08/15/21 Range/Units 08:11 11:28 WBC (5.0-10.0) 10^3/uL RBC (4.2-5.4) 10^6/uL Hgb (12.0-16.0) g/dL Hct (37.0-47.0) % MCV (80-100) fL MCH (27.0-34.0) pg MCHC (33.0-35.0) g/dL Plt Count (150-450) 10^3/uL Neut % (Auto) (42.2-75.2) % Lymph % (Auto) (20.5-50.1) % [place] % (Auto) (2-8) % Eos % (Auto) (1.0-3.0) % Baso % (Auto) (0.0-1.0) % Sodium (136-145) mmol/L Potassium (3.5-5.1) mmol/L Chloride (98-107) mmol/L Carbon Dioxide (21-32) mmol/L Anion Gap (7-13) mEq/L BUN (7-18) mg/dL Creatinine (0.55-1.02) mg/dL Est Cr Clr Drug Dosing Estimated GFR (MDRD) BUN/Creatinine Ratio (No establ ref range) Glucose (70-99) mg/dL POC Glucose 155 H 201 H (70-99) mg/dL Calcium (8.5-10.1) mg/dL Magnesium (1.8-2.4) mg/dL Total Bilirubin (0.2-1.0) mg/dL AST (15-37) U/L ALT (14-59) U/L Alkaline Phosphatase (46-116) U/L Troponin I High Sens (<=51) pg/mL Total Protein (6.4-8.2) g/dL Albumin (3.4-5.0) g/dL Globulin Albumin/Globulin Ratio Urine Color (YELLOW) Urine Appearance (CLEAR) Urine pH (5.0-9.0) Ur Specific [place] (1.005-1.030) Urine Protein (NEGATIVE) Urine Glucose (UA) (NEGATIVE) Urine Ketones (NEGATIVE) Urine Occult Blood (NEGATIVE) Urine Nitrite (NEGATIVE) Urine Bilirubin (NEGATIVE) Urine Urobilinogen (0.2-1.0) mg/dL Ur Leukocyte Esterase (NEGATIVE) Urine RBC (0-5) /HPF Urine WBC (0-5/HPF) /HPF Ur Epithelial Cells (NOT SEEN) /HPF Urine Bacteria (0-FEW/HPF) /HPF SARS CoV-2 RNA Rapid JAVI (NEGATIVE) [place] Results Last 24 Hours: Microbiology 08/14/21 17:00 Urine Culture - Preliminary Urine, Voided Med Orders - Current: Current Medications Acetaminophen (Acetaminophen 500 Mg Tab) 500 mg PO Q4H PRN PRN Reason: Pain (mild 1-3) Last Admin: 08/15/21 03:22 Dose: 500 mg Documented by: Ascorbic Acid (Ascorbic Acid 500 Mg Tab) 500 mg PO DAILY [facility] Last Admin: 08/15/21 10:14 Dose: 500 mg Documented by: Aspirin (Aspirin 81 Mg Tab.Ec) 81 mg PO DAILY [facility] Last Admin: 08/15/21 10:14 Dose: 81 mg Documented by: Calcium Carbonate (Calcium Carbonate/Vitamin D3 1250 Mg-5 Mcg Tab) 1 tab PO DAILY [facility] Last Admin: 08/15/21 10:14 Dose: 1 tab Documented by: Calcium Carbonate/Glycine (Calcium Carbonate 500 Mg Tab.Chew) 500 mg PO Q4H PRN PRN Reason: Heartburn Dextrose/Water (50% Dextrose In Water 50 Ml Syringe) 50 ml IVPUSH Q15M PRN PRN Reason: Hypoglycemia Docusate Sodium (Docusate Sodium 100 Mg Cap) 100 mg PO BID PRN PRN Reason: Constipation Duloxetine HCl (Duloxetine 30 Mg Cap) 30 mg PO DAILY [facility] Last Admin: 08/15/21 10:14 Dose: 30 mg Documented by: Enoxaparin Sodium (Enoxaparin 40 Mg/0.4 Ml Syringe) 40 mg SUBCUT DAILY [facility] Last Admin: 08/15/21 10:14 Dose: 40 mg Documented by: Glucagon (Glucagon,Human Recombinant 1 Mg Vial) 1 mg IM Q15M PRN PRN Reason: Hypoglycemia Ceftriaxone Sodium 1 gm/ (Sodium Chloride) 50 mls @ 100 mls/hr IV Q24H [facility] Last Admin: 08/14/21 19:59 Dose: 100 mls/hr Documented by: Insulin Glargine (Insulin Glarg,Human.Rec.Analog 100 Unit/Ml) 37 unit SUBCUT DAILY [facility] Last Admin: 08/15/21 10:13 Dose: 37 units Documented by: Magnesium Hydroxide (Magnesium Hydroxide 400 Mg/5 Ml Susp 30 Ml Cup) 30 ml PO DAILY PRN PRN Reason: Constipation Meclizine HCl (Meclizine 12.5 Mg Tab) 25 mg PO Q12H PRN PRN Reason: vertigo Multivitamins/Minerals/Vitamin C (Multivitamin Tab) 1 tab PO DAILY [facility] Last Admin: 08/15/21 10:14 Dose: 1 tab Documented by: Ondansetron HCl (Ondansetron 4 Mg/2 Ml Sdv) 4 mg IVPUSH Q6H PRN PRN Reason: Nausea/Vomiting Polyethylene Glycol (Polyethylene Glycol 3350 Powder 17 Gm Packet) 17 gm PO DAILY PRN PRN Reason: Constipation Discontinued Medications Ceftriaxone Sodium (Ceftriaxone 1 Gm Vial) Confirm Administered Dose 1 gm .ROUTE .STK-MED ONE Stop: 08/14/21 19:47 Last Admin: 08/14/21 20:11 Dose: Not Given Documented by: Sodium Chloride (Normal Saline) 500 mls @ 500 mls/hr IV .BOLUS [facility] Last Infusion: 08/14/21 18:03 Dose: Infused Documented by: Meclizine HCl (Meclizine 12.5 Mg Tab) 25 mg PO ONETIME ONE Stop: 08/14/21 14:51 Last Admin: 08/14/21 14:59 Dose: 25 mg Documented by: - Exam Quality Assessment: No: Supplemental Oxygen General: Alert, Oriented HEENT: EOMI Lungs: Clear to Auscultation Cardiovascular: Regular Rate, Regular Rhythm GI/Abdominal Exam: Soft (Female) Exam: No: Normal External Exam Back Exam: Normal Inspection Extremities: Normal Inspection Skin: Dry Neurological: No New Focal Deficit - Patient Data Lab Results Last 24 hrs: Laboratory Results - last 24 hr 08/14/21 08/14/21 08/14/21 Range/Units 13:02 13:02 15:09 WBC 7.1 (5.0-10.0) 10^3/uL RBC 4.69 (4.2-5.4) 10^6/uL Hgb 14.4 (12.0-16.0) g/dL Hct 43.9 (37.0-47.0) % MCV 93.6 D (80-100) fL MCH 30.7 (27.0-34.0) pg MCHC 32.8 L (33.0-35.0) g/dL Plt Count 234 (150-450) 10^3/uL Neut % (Auto) 58.8 (42.2-75.2) % Lymph % (Auto) 30.0 (20.5-50.1) % [place] % (Auto) 8.5 H (2-8) % Eos % (Auto) 2.1 (1.0-3.0) % Baso % (Auto) 0.6 (0.0-1.0) % Sodium 140 (136-145) mmol/L Potassium 4.1 (3.5-5.1) mmol/L Chloride 104 (98-107) mmol/L Carbon Dioxide 27 (21-32) mmol/L Anion Gap 13.1 H (7-13) mEq/L BUN 15 (7-18) mg/dL Creatinine 1.03 H (0.55-1.02) mg/dL Est Cr Clr Drug Dosing TNP Estimated GFR (MDRD) 50 BUN/Creatinine Ratio 14.6 (No establ ref range) Glucose 133 H (70-99) mg/dL POC Glucose (70-99) mg/dL Calcium 8.9 (8.5-10.1) mg/dL Magnesium 2.0 (1.8-2.4) mg/dL Total Bilirubin 0.3 (0.2-1.0) mg/dL AST 18 (15-37) U/L ALT 28 (14-59) U/L Alkaline Phosphatase 70 (46-116) U/L Troponin I High Sens 18 (<=51) pg/mL Total Protein 7.1 (6.4-8.2) g/dL Albumin 2.4 L (3.4-5.0) g/dL Globulin 4.7 Albumin/Globulin Ratio 0.51 Urine Color (YELLOW) Urine Appearance (CLEAR) Urine pH (5.0-9.0) Ur Specific [place] (1.005-1.030) Urine Protein (NEGATIVE) Urine Glucose (UA) (NEGATIVE) Urine Ketones (NEGATIVE) Urine Occult Blood (NEGATIVE) Urine Nitrite (NEGATIVE) Urine Bilirubin (NEGATIVE) Urine Urobilinogen (0.2-1.0) mg/dL Ur Leukocyte Esterase (NEGATIVE) Urine RBC (0-5) /HPF Urine WBC (0-5/HPF) /HPF Ur Epithelial Cells (NOT SEEN) /HPF Urine Bacteria (0-FEW/HPF) /HPF SARS CoV-2 RNA Rapid JAVI Negative (NEGATIVE) 08/14/21 08/14/21 08/15/21 Range/Units 17:00 20:41 00:08 WBC (5.0-10.0) 10^3/uL RBC (4.2-5.4) 10^6/uL Hgb (12.0-16.0) g/dL Hct (37.0-47.0) % MCV (80-100) fL MCH (27.0-34.0) pg MCHC (33.0-35.0) g/dL Plt Count (150-450) 10^3/uL Neut % (Auto) (42.2-75.2) % Lymph % (Auto) (20.5-50.1) % [place] % (Auto) (2-8) % Eos % (Auto) (1.0-3.0) % Baso % (Auto) (0.0-1.0) % Sodium (136-145) mmol/L Potassium (3.5-5.1) mmol/L Chloride (98-107) mmol/L Carbon Dioxide (21-32) mmol/L Anion Gap (7-13) mEq/L BUN (7-18) mg/dL Creatinine (0.55-1.02) mg/dL Est Cr Clr Drug Dosing Estimated GFR (MDRD) BUN/Creatinine Ratio (No establ ref range) Glucose (70-99) mg/dL POC Glucose 188 H 136 H (70-99) mg/dL Calcium (8.5-10.1) mg/dL Magnesium (1.8-2.4) mg/dL Total Bilirubin (0.2-1.0) mg/dL AST (15-37) U/L ALT (14-59) U/L Alkaline Phosphatase (46-116) U/L Troponin I High Sens (<=51) pg/mL Total Protein (6.4-8.2) g/dL Albumin (3.4-5.0) g/dL Globulin Albumin/Globulin Ratio Urine Color Yellow (YELLOW) Urine Appearance Cloudy (CLEAR) Urine pH 7.5 (5.0-9.0) Ur Specific [place] 1.020 (1.005-1.030) Urine Protein Negative (NEGATIVE) Urine Glucose (UA) Negative (NEGATIVE) Urine Ketones Negative (NEGATIVE) Urine Occult Blood Trace-intact H (NEGATIVE) Urine Nitrite Positive H (NEGATIVE) Urine Bilirubin Negative (NEGATIVE) Urine Urobilinogen 0.2 (0.2-1.0) mg/dL Ur Leukocyte Esterase Large H (NEGATIVE) Urine RBC 0-5 (0-5) /HPF Urine WBC >100 H (0-5/HPF) /HPF Ur Epithelial Cells Few (NOT SEEN) /HPF Urine Bacteria Many H (0-FEW/HPF) /HPF SARS CoV-2 RNA Rapid JAVI (NEGATIVE) 08/15/21 08/15/21 Range/Units 08:11 11:28 WBC (5.0-10.0) 10^3/uL RBC (4.2-5.4) 10^6/uL Hgb (12.0-16.0) g/dL Hct (37.0-47.0) % MCV (80-100) fL MCH (27.0-34.0) pg MCHC (33.0-35.0) g/dL Plt Count (150-450) 10^3/uL Neut % (Auto) (42.2-75.2) % Lymph % (Auto) (20.5-50.1) % [place] % (Auto) (2-8) % Eos % (Auto) (1.0-3.0) % Baso % (Auto) (0.0-1.0) % Sodium (136-145) mmol/L Potassium (3.5-5.1) mmol/L Chloride (98-107) mmol/L Carbon Dioxide (21-32) mmol/L Anion Gap (7-13) mEq/L BUN (7-18) mg/dL Creatinine (0.55-1.02) mg/dL Est Cr Clr Drug Dosing Estimated GFR (MDRD) BUN/Creatinine Ratio (No establ ref range) Glucose (70-99) mg/dL POC Glucose 155 H 201 H (70-99) mg/dL Calcium (8.5-10.1) mg/dL Magnesium (1.8-2.4) mg/dL Total Bilirubin (0.2-1.0) mg/dL AST (15-37) U/L ALT (14-59) U/L Alkaline Phosphatase (46-116) U/L Troponin I High Sens (<=51) pg/mL Total Protein (6.4-8.2) g/dL Albumin (3.4-5.0) g/dL Globulin Albumin/Globulin Ratio Urine Color (YELLOW) Urine Appearance (CLEAR) Urine pH (5.0-9.0) Ur Specific [place] (1.005-1.030) Urine Protein (NEGATIVE) Urine Glucose (UA) (NEGATIVE) Urine Ketones (NEGATIVE) Urine Occult Blood (NEGATIVE) Urine Nitrite (NEGATIVE) Urine Bilirubin (NEGATIVE) Urine Urobilinogen (0.2-1.0) mg/dL Ur Leukocyte Esterase (NEGATIVE) Urine RBC (0-5) /HPF Urine WBC (0-5/HPF) /HPF Ur Epithelial Cells (NOT SEEN) /HPF Urine Bacteria (0-FEW/HPF) /HPF SARS CoV-2 RNA Rapid JAVI (NEGATIVE) Result Diagrams: 08/14/21 13:02 08/14/21 13:02 [place] Results Last 24 hrs: Microbiology 08/14/21 17:00 Urine Culture - Preliminary Urine, Voided Sepsis Event Note - Evaluation Sepsis Screening Result: No Definite Risk - Focused Exam Vital Signs: Vital Signs Temp Pulse Resp BP BP Pulse Ox 08/15/21 12:00 97.8 F 90 20 122/65 95 08/15/21 08:00 98.4 F 98 20 105/62 94 L 08/15/21 04:00 98.0 F 94 23 H 113/81 94 L - Problem List Review Problem List Initiated/Reviewed/Updated: No - My Orders Last 24 Hours: My Active Orders 08/14/21 17:10 Blood Glucose Check, Bedside [RC] WITHMEALSANDBED Acetaminophen [Tylenol Extra Strength] 500 mg PO Q4H PRN Calcium Carbonate [Tums] 500 mg PO Q4H PRN Dextrose 50% in Water 50 ml IVPUSH Q15M PRN Glucagon,Human Recombinant [GlucaGen] 1 mg IM Q15M PRN Magnesium Hydroxide [Milk of Magnesia] 30 ml PO DAILY PRN polyethylene glycoL 3350 [MiraLAX] 17 gm PO DAILY PRN 08/14/21 17:12 Height and Weight [RC] .0600 Oxygen Therapy [RC] PRN Up With Assistance [RC] ASDIRECTED VTE/DVT Education [RC] Vital Signs [RC] 00,04,08,12,16,20 OT Evaluation and Treatment [CONS] Routine PT Evaluation and Treatment [CONS] Routine Docusate Sodium [Colace] 100 mg PO BID PRN Ondansetron [Zofran] 4 mg IVPUSH Q6H PRN Resuscitation Status Routine 08/14/21 17:13 Intake and Output [RC] 06,14,08/14/21 17:15 Cardiac Monitoring [RC] , Consistent Carbohydrate Diet [DIET] 08/14/21 17:16 Orthostatic Vital Signs [RC] 08 08/14/21 17:25 Meclizine [Antivert] 25 mg PO Q12H PRN 08/14/21 18:55 Admission Diagnosis [ADT] Routine Patient Status [ADT] Routine 08/14/21 19:00 cefTRIAXone [Rocephin] 1 gm Sodium Chloride 0.9% [Normal Saline] 50 ml IV Q24H 08/15/21 09:00 Ascorbic Acid [Vitamin C] 500 mg PO DAILY Aspirin [Halfprin] 81 mg PO DAILY Calcium Carbonate/Vitamin D3 [Calcium Carbonate/Vitamin D 1250 MG - 5 MCG] 1 tab PO DAILY DULoxetine [Cymbalta] 30 mg PO DAILY Enoxaparin [Lovenox] 40 mg SUBCUT DAILY Insulin Glarg,Human.Rec.Analog [LantUS] 37 unit SUBCUT DAILY Multivitamins [Tab-A-Renetta] 1 tab PO DAILY - Plan Plan:: Vertigo/Meclizine 25 mg BID PRN. symptoms resolved. at risk for falls ; admitted for observation. PT/OT evaluation. Family are loo diana into the option of NH placement. 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 Bacteruria : ? Asymptomatic UTI: awaiting cult results. last dose of Ceftriaxone in AM. DVT prophylaxis : Lovenox. DNR /DNI as per assisted living record.
[2021-08-15] MEDS: cefTRIAXone 1 GM in Sodium Chloride 0.9% 50 ML IV SCH (18:55)
[2021-08-16] MEDS: Multivitamin Tab PO SCH (08:08)
[2021-08-16] MEDS: Enoxaparin 40 MG/0.4 ML Syringe SUBCUT SCH (08:08)
[2021-08-16] MEDS: Aspirin 81 MG Tab.EC PO SCH (08:08)
[2021-08-16] MEDS: DULoxetine 30 MG Cap PO SCH (08:08)
[2021-08-16] MEDS: Calcium Carbonate/Vitamin D3 1250 MG-5 MCG Tab PO SCH (08:08)
[2021-08-16] MEDS: Ascorbic Acid 500 MG Tab PO SCH (08:08)
[2021-08-16] MEDS: Insulin Glarg,Human.Rec.Analog 100 Unit/ML SUBCUT SCH (09:06)
--- NOTE | 2021-08-16 10:35 | PCM.PN ---
- General Info Date of Service: 08/16/21 Subjective Update: No dizziness Functional Status: Reports: Pain Controlled, Tolerating Diet - Review of Systems General: Denies: Fever Pulmonary: Denies: Shortness of Breath Cardiovascular: Denies: Chest Pain Gastrointestinal: Denies: Abdominal Pain Neurological: Denies: Confusion, Dizziness Psychiatric: Denies: Confusion - Patient Data Vitals - Most Recent: Last Vital Signs Temp 97.2 F 08/16/21 08:00 Pulse 78 08/16/21 08:00 Resp 24 H 08/16/21 08:00 BP 152/62 H 08/16/21 08:00 Pulse Ox 95 08/16/21 08:00 Orthostatic Blood Pressure [ 149/72 Standing] Orthostatic Blood Pressure [ 105/62 Sitting] Orthostatic Blood Pressure [ 121/57 Supine] Weight - Most Recent: 160 lb 4.8 oz I&O - Last 24 Hours: Intake & Output 08/15/21 08/16/21 08/16/21 22:59 06:59 14:59 Intake Total 400 300 Balance 400 300 Lab Results Last 24 Hours: Laboratory Results - last 24 hr 08/15/21 08/15/21 08/15/21 Range/Units 11:28 16:30 20:08 POC Glucose 201 H 212 H 189 H (70-99) mg/dL 08/16/21 Range/Units 08:04 POC Glucose 148 H (70-99) mg/dL [place] Results Last 24 Hours: Microbiology 08/14/21 17:00 Urine Culture - Final Urine, Voided Klebsiella Oxytoca Med Orders - Current: Current Medications Acetaminophen (Acetaminophen 500 Mg Tab) 500 mg PO Q4H PRN PRN Reason: Pain (mild 1-3) Last Admin: 08/15/21 03:22 Dose: 500 mg Documented by: Ascorbic Acid (Ascorbic Acid 500 Mg Tab) 500 mg PO DAILY [facility] Last Admin: 08/16/21 08:08 Dose: 500 mg Documented by: Aspirin (Aspirin 81 Mg Tab.Ec) 81 mg PO DAILY [facility] Last Admin: 08/16/21 08:08 Dose: 81 mg Documented by: Calcium Carbonate (Calcium Carbonate/Vitamin D3 1250 Mg-5 Mcg Tab) 1 tab PO DAILY [facility] Last Admin: 08/16/21 08:08 Dose: 1 tab Documented by: Calcium Carbonate/Glycine (Calcium Carbonate 500 Mg Tab.Chew) 500 mg PO Q4H PRN PRN Reason: Heartburn Dextrose/Water (50% Dextrose In Water 50 Ml Syringe) 50 ml IVPUSH Q15M PRN PRN Reason: Hypoglycemia Docusate Sodium (Docusate Sodium 100 Mg Cap) 100 mg PO BID PRN PRN Reason: Constipation Duloxetine HCl (Duloxetine 30 Mg Cap) 30 mg PO DAILY [facility] Last Admin: 08/16/21 08:08 Dose: 30 mg Documented by: Enoxaparin Sodium (Enoxaparin 40 Mg/0.4 Ml Syringe) 40 mg SUBCUT DAILY [facility] Last Admin: 08/16/21 08:08 Dose: 40 mg Documented by: Glucagon (Glucagon,Human Recombinant 1 Mg Vial) 1 mg IM Q15M PRN PRN Reason: Hypoglycemia Ceftriaxone Sodium 1 gm/ (Sodium Chloride) 50 mls @ 100 mls/hr IV Q24H [facility] Last Admin: 08/15/21 18:55 Dose: 100 mls/hr Documented by: Insulin Glargine (Insulin Glarg,Human.Rec.Analog 100 Unit/Ml) 37 unit SUBCUT DAILY [facility] Last Admin: 08/16/21 09:06 Dose: 37 unit Documented by: Magnesium Hydroxide (Magnesium Hydroxide 400 Mg/5 Ml Susp 30 Ml Cup) 30 ml PO DAILY PRN PRN Reason: Constipation Meclizine HCl (Meclizine 12.5 Mg Tab) 25 mg PO Q12H PRN PRN Reason: vertigo Multivitamins/Minerals/Vitamin C (Multivitamin Tab) 1 tab PO DAILY [facility] Last Admin: 08/16/21 08:08 Dose: 1 tab Documented by: Ondansetron HCl (Ondansetron 4 Mg/2 Ml Sdv) 4 mg IVPUSH Q6H PRN PRN Reason: Nausea/Vomiting Polyethylene Glycol (Polyethylene Glycol 3350 Powder 17 Gm Packet) 17 gm PO DAILY PRN PRN Reason: Constipation Discontinued Medications Ceftriaxone Sodium (Ceftriaxone 1 Gm Vial) Confirm Administered Dose 1 gm .ROUTE .[facility]-MED ONE Stop: 08/14/21 19:47 Last Admin: 08/14/21 20:11 Dose: Not Given Documented by: Sodium Chloride (Normal Saline) 500 mls @ 500 mls/hr IV .BOLUS [facility] Last Infusion: 08/14/21 18:03 Dose: Infused Documented by: Meclizine HCl (Meclizine 12.5 Mg Tab) 25 mg PO ONETIME ONE Stop: 08/14/21 14:51 Last Admin: 08/14/21 14:59 Dose: 25 mg Documented by: - Exam General: Alert, Oriented, Cooperative HEENT: EOMI Lungs: Clear to Auscultation, Normal Respiratory Effort Cardiovascular: Regular Rate, Regular Rhythm GI/Abdominal Exam: Normal Bowel Sounds, Soft Back Exam: Normal Inspection Extremities: Normal Inspection Skin: Warm, Dry Neurological: No New Focal Deficit Psy/Mental Status: Alert - Patient Data Lab Results Last 24 hrs: Laboratory Results - last 24 hr 08/15/21 08/15/21 08/15/21 Range/Units 11:28 16:30 20:08 POC Glucose 201 H 212 H 189 H (70-99) mg/dL 08/16/21 Range/Units 08:04 POC Glucose 148 H (70-99) mg/dL Result Diagrams: 08/14/21 13:02 08/14/21 13:02 [place] Results Last 24 hrs: Microbiology 08/14/21 17:00 Urine Culture - Final Urine, Voided Klebsiella Oxytoca Sepsis Event Note - Evaluation Sepsis Screening Result: No Definite Risk - Focused Exam Vital Signs: Vital Signs Temp Pulse Resp BP Pulse Ox 08/16/21 08:00 97.2 F 78 24 H 152/62 H 95 08/16/21 04:00 97.7 F 86 19 154/66 H 95 - Problem List Review Problem List Initiated/Reviewed/Updated: No - My Orders Last 24 Hours: My Active Orders 08/15/21 16:26 Patient Status [ADT] Routine - Plan Plan:: Vertigo/Meclizine 25 mg BID PRN. symptoms resolved. at risk for falls ; admitted for observation. PT/OT evaluation. Family are looking into the option of NH placement. 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 Bacteruria : ? UTI: awaiting cult results. last dose of Ceftriaxone in AM. DVT prophylaxis : Lovenox. DNR /DNI as per assisted living record.
[2021-08-16] MEDS: Acetaminophen 500 MG Tab PO PRN (14:24)
[2021-08-16] MEDS: cefTRIAXone 1 GM in Sodium Chloride 0.9% 50 ML IV SCH (19:51)
[2021-08-17] MEDS: Multivitamin Tab PO SCH (09:17)
[2021-08-17] MEDS: DULoxetine 30 MG Cap PO SCH (09:18)
[2021-08-17] MEDS: Calcium Carbonate/Vitamin D3 1250 MG-5 MCG Tab PO SCH (09:18)
[2021-08-17] MEDS: Aspirin 81 MG Tab.EC PO SCH (09:18)
[2021-08-17] MEDS: Ascorbic Acid 500 MG Tab PO SCH (09:18)
[2021-08-17] MEDS: Enoxaparin 40 MG/0.4 ML Syringe SUBCUT SCH (09:19)
[2021-08-17] MEDS: Insulin Glarg,Human.Rec.Analog 100 Unit/ML SUBCUT SCH (09:25)
[2021-08-17] MEDS: Acetaminophen 500 MG Tab PO PRN ×2 (10:47→22:57)
--- NOTE | 2021-08-17 11:28 | PCM.PN ---
- General Info Date of Service: 08/17/21 Subjective Update: No dizziness Functional Status: Reports: Pain Controlled, Tolerating Diet, Ambulating - Review of Systems General: Denies: Fever Pulmonary: Denies: Shortness of Breath Cardiovascular: Denies: Chest Pain Gastrointestinal: Denies: Abdominal Pain Neurological: Denies: Confusion Psychiatric: Denies: No Symptoms - Patient Data Vitals - Most Recent: Last Vital Signs Temp 98.5 F 08/17/21 08:00 Pulse 85 08/17/21 08:00 Resp 16 08/17/21 08:00 BP 126/57 L 08/17/21 08:00 Pulse Ox 95 08/17/21 08:00 Orthostatic Blood Pressure [ 149/72 Standing] Orthostatic Blood Pressure [ 105/62 Sitting] Orthostatic Blood Pressure [ 121/57 Supine] Weight - Most Recent: 160 lb 4.8 oz I&O - Last 24 Hours: Intake & Output 08/16/21 08/17/21 08/17/21 22:59 06:59 14:59 Intake Total 50 200 Balance 50 200 Lab Results Last 24 Hours: Laboratory Results - last 24 hr 08/16/21 08/16/21 08/16/21 Range/Units 11:52 16:49 21:27 POC Glucose 174 H 150 H 170 H (70-99) mg/dL 08/17/21 Range/Units 07:47 POC Glucose 143 H (70-99) mg/dL [place] Results Last 24 Hours: Microbiology 08/14/21 17:00 Urine Culture - Final Urine, Voided Klebsiella Oxytoca Med Orders - Current: Current Medications Acetaminophen (Acetaminophen 500 Mg Tab) 500 mg PO Q4H PRN PRN Reason: Pain (mild 1-3) Last Admin: 08/17/21 10:47 Dose: 500 mg Documented by: Ascorbic Acid (Ascorbic Acid 500 Mg Tab) 500 mg PO DAILY [facility] Last Admin: 08/17/21 09:18 Dose: 500 mg Documented by: Aspirin (Aspirin 81 Mg Tab.Ec) 81 mg PO DAILY [facility] Last Admin: 08/17/21 09:18 Dose: 81 mg Documented by: Calcium Carbonate (Calcium Carbonate/Vitamin D3 1250 Mg-5 Mcg Tab) 1 tab PO DAILY [facility] Last Admin: 08/17/21 09:18 Dose: 1 tab Documented by: Calcium Carbonate/Glycine (Calcium Carbonate 500 Mg Tab.Chew) 500 mg PO Q4H PRN PRN Reason: Heartburn Dextrose/Water (50% Dextrose In Water 50 Ml Syringe) 50 ml IVPUSH Q15M PRN PRN Reason: Hypoglycemia Docusate Sodium (Docusate Sodium 100 Mg Cap) 100 mg PO BID PRN PRN Reason: Constipation Duloxetine HCl (Duloxetine 30 Mg Cap) 30 mg PO DAILY [facility] Last Admin: 08/17/21 09:18 Dose: 30 mg Documented by: Enoxaparin Sodium (Enoxaparin 40 Mg/0.4 Ml Syringe) 40 mg SUBCUT DAILY [facility] Last Admin: 08/17/21 09:19 Dose: 40 mg Documented by: Glucagon (Glucagon,Human Recombinant 1 Mg Vial) 1 mg IM Q15M PRN PRN Reason: Hypoglycemia Ceftriaxone Sodium 1 gm/ (Sodium Chloride) 50 mls @ 100 mls/hr IV Q24H [facility] Last Admin: 08/16/21 19:51 Dose: 100 mls/hr Documented by: Insulin Glargine (Insulin Glarg,Human.Rec.Analog 100 Unit/Ml) 37 unit SUBCUT DAILY [facility] Last Admin: 08/17/21 09:25 Dose: 37 unit Documented by: Magnesium Hydroxide (Magnesium Hydroxide 400 Mg/5 Ml Susp 30 Ml Cup) 30 ml PO DAILY PRN PRN Reason: Constipation Meclizine HCl (Meclizine 12.5 Mg Tab) 25 mg PO Q12H PRN PRN Reason: vertigo Multivitamins/Minerals/Vitamin C (Multivitamin Tab) 1 tab PO DAILY [facility] Last Admin: 08/17/21 09:17 Dose: 1 tab Documented by: Ondansetron HCl (Ondansetron 4 Mg/2 Ml Sdv) 4 mg IVPUSH Q6H PRN PRN Reason: Nausea/Vomiting Polyethylene Glycol (Polyethylene Glycol 3350 Powder 17 Gm Packet) 17 gm PO DAILY PRN PRN Reason: Constipation Discontinued Medications Ceftriaxone Sodium (Ceftriaxone 1 Gm Vial) Confirm Administered Dose 1 gm .ROUTE .[facility] ONE Stop: 08/14/21 19:47 Last Admin: 08/14/21 20:11 Dose: Not Given Documented by: Sodium Chloride (Normal Saline) 500 mls @ 500 mls/hr IV .[facility]US [facility] Last Infusion: 08/14/21 18:03 Dose: Infused Documented by: Meclizine HCl (Meclizine 12.5 Mg Tab) 25 mg PO ONETIME ONE Stop: 08/14/21 14:51 Last Admin: 08/14/21 14:59 Dose: 25 mg Documented by: - Exam Quality Assessment: No: Supplemental Oxygen General: Alert, Oriented, Cooperative Neck: Supple Lungs: Clear to Auscultation, Normal Respiratory Effort Cardiovascular: Regular Rate, Regular Rhythm GI/Abdominal Exam: Soft, Non-Tender Extremities: No Pedal Edema Skin: Dry Neurological: No New Focal Deficit Psy/Mental Status: Alert, Normal Affect - Patient Data Lab Results Last 24 hrs: Laboratory Results - last 24 hr 08/16/21 08/16/21 08/16/21 Range/Units 11:52 16:49 21:27 POC Glucose 174 H 150 H 170 H (70-99) mg/dL 08/17/21 Range/Units 07:47 POC Glucose 143 H (70-99) mg/dL Result Diagrams: 08/14/21 13:02 08/14/21 13:02 [place] Results Last 24 hrs: Microbiology 08/14/21 17:00 Urine Culture - Final Urine, Voided Klebsiella Oxytoca Sepsis Event Note - Evaluation Sepsis Screening Result: No Definite Risk - Focused Exam Vital Signs: Vital Signs Temp Pulse Resp BP BP Pulse Ox 08/17/21 08:00 98.5 F 85 16 126/57 L 95 08/17/21 04:20 98 F 85 14 158/66 H 95 08/17/21 01:10 97.4 F 81 14 153/72 H 96 - Problem List Review Problem List Initiated/Reviewed/Updated: No - Plan Plan:: Vertigo/Meclizine 25 mg BID PRN. symptoms resolved. at risk for falls ; admitted for observation. PT/OT evaluation. Family are looking into the option of NH placement. 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 Bacteruria : ? UTI: awaiting cult results. last dose of Ceftriaxone in AM. DVT prophylaxis : Lovenox. DNR /DNI as per assisted living record.
[2021-08-17] MEDS: Insulin Lispro 100 Units/ML 3 ML Vial SUBCUT SCH ×3 (14:53→21:12)
[2021-08-18] MEDS: Insulin Lispro 100 Units/ML 3 ML Vial SUBCUT SCH (08:00)
[2021-08-18] MEDS: Ascorbic Acid 500 MG Tab PO SCH (08:45)
[2021-08-18] MEDS: Multivitamin Tab PO SCH (08:46)
[2021-08-18] MEDS: Calcium Carbonate/Vitamin D3 1250 MG-5 MCG Tab PO SCH (08:46)
[2021-08-18] MEDS: Aspirin 81 MG Tab.EC PO SCH (08:48)
[2021-08-18] MEDS: DULoxetine 30 MG Cap PO SCH (08:48)
[2021-08-18] MEDS: Enoxaparin 40 MG/0.4 ML Syringe SUBCUT SCH (08:50)
[2021-08-18] MEDS: Insulin Glarg,Human.Rec.Analog 100 Unit/ML SUBCUT SCH (09:00)
[2021-08-18] MEDS ORDERED: Ciprofloxacin 500 MG Tab PO SCH (09:00)
--- NOTE | 2021-08-18 09:31 | PCM.DCSUM1 ---
Discharge Summary - Hospital Course Free Text/Narrative:: Patient was brought to ER form her assisted living with c/o waking with "room spin" dizziness. Denies fall or head injury. Denies chest pain, rapid or irregular HR, N/V/D, fever, chills, cough, SOB, or dysuria. She reports similar episode in the past. Pt states that laying still alleviates the dizziness. Moving her body, or even head movement makes the dizziness worse. She laid on her bed all day to minimize the dizziness, and she missed her insulin then finally called the ambulance. CT in ER showed no acute findings. Pt was prescribed Meclizine in ER and she is now symptoms free. Vertigo: symptoms resolved since admission. Meclizine 25 mg BID PRN. at risk for falls: evaluated by PT/OT evaluation. Family would like to move her into [facility]. 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 Bacteruria : ? UTI: Klebsiella treated with Ceftriaxone then switched to Cipro DVT prophylaxis : Lovenox. - Discharge Data Discharge Date: 08/18/21 Discharge Disposition: DC/Tfer to [facility] Condition: Good - Referral to Home Health Primary Care Physician: PCP None - Patient Summary/Data Consults: Consultations 08/14/21 17:12 OT Evaluation and Treatment [CONS] Routine PT Evaluation and Treatment [CONS] Routine - Discharge Plan *PRESCRIPTION DRUG MONITORING PROGRAM REVIEWED*: No *COPY OF PRESCRIPTION DRUG MONITORING REPORT IN PATIENT ROWENA: No Prescriptions/Med Rec: Meclizine [Antivert] 25 mg PO Q12H PRN 15 Days #30 tablet PRN Reason: vertigo Ciprofloxacin [Ciprofloxacin HCl] 250 mg PO BID 3 Days #6 tablet Home Medications: Home Meds Acetaminophen [Tylenol Extra Strength] 500 mg PO Q4H PRN 08/14/21 [History] Aspirin [Halfprin] 81 mg PO DAILY 08/14/21 [History] Ca/D3/Mag Ox/Zinc/Double Needle Stitcher/Octavio/Bor [Calcium 600-D3 Plus Caplet] 1 tab PO BID@1200,17 00 08/14/21 [History] DULoxetine HCl [Cymbalta] 30 mg PO DAILY 08/14/21 [History] Diclofenac Sodium [Voltaren Arthritis Pain] 1 applic TOP Q12H PRN 08/14/21 [History] Fish Oil/DHA/EPA [Fish Oil 1,200 MG] 1 cap PO DAILY@1200 08/14/21 [History] Insulin Glarg,Human.Rec.Analog [Lantus] 37 units SQ DAILY@1200 08/14/21 [History] Magnesium Hydroxide [Milk of Magnesia] 30 ml PO DAILY PRN 08/14/21 [History] Multivitamin [Multi-Day Vitamins] 1 tab PO DAILY 08/14/21 [History] polyethylene glycoL 3350 [MiraLAX] 1 pack PO DAILY 08/14/21 [History] Acetaminophen 650 mg PO BID 08/15/21 [History] Ammonium Lactate 1 applic TOP DAILY PRN 08/15/21 [History] Ascorbic Acid [Acerola C] 500 mg PO DAILY 08/15/21 [History] Docusate Sodium/Sennosides [Senokot-S] 1 tab PO BID 08/15/21 [History] Famotidine [Pepcid AC] 10 mg PO BID 08/15/21 [History] metFORMIN [Glucophage] 500 mg PO BID 08/15/21 [History] Ciprofloxacin [Ciprofloxacin HCl] 250 mg PO BID 3 Days #6 tablet 08/18/21 [Rx] Docusate Sodium [Colace] 100 mg PO BID PRN cap 08/18/21 [Rx] Enoxaparin [Lovenox] 40 mg SUBCUT DAILY syringe 08/18/21 [Rx] Meclizine [Antivert] 25 mg PO Q12H PRN 15 Days #30 tablet 08/18/21 [Rx] Referrals: PCP,None [Primary Care Provider] - - Discharge Summary/Plan Comment DC Time >30 min.: Yes Total # of Minutes for Discharge Time: 35 min - General Info Date of Service: 08/18/21 Functional Status: Reports: Pain Controlled, Tolerating Diet, Ambulating - Review of Systems General: Denies: Fever Pulmonary: Denies: Shortness of Breath Cardiovascular: Denies: Chest Pain Gastrointestinal: Denies: Abdominal Pain Genitourinary: Denies: Dysuria Musculoskeletal: Denies: Neck Pain - Patient Data Vitals - Most Recent: Last Vital Signs Temp 98.6 F 08/18/21 06:00 Pulse 71 08/18/21 06:00 Resp 14 08/18/21 06:00 BP 104/65 08/18/21 06:00 Pulse Ox 96 08/18/21 06:00 Orthostatic Blood Pressure [ 80/40 Standing] Orthostatic Blood Pressure [ 86/61 Sitting] Orthostatic Blood Pressure [ 100/58 Supine] Weight - Most Recent: 160 lb 4.8 oz I&O - Last 24 hours: Intake & Output 08/17/21 08/18/21 08/18/21 22:59 06:59 14:59 Intake Total 440 100 Balance 440 100 Lab Results - Last 24 hrs: Laboratory Results - last 24 hr 08/17/21 08/17/21 08/17/21 Range/Units 11:36 16:57 20:55 POC Glucose 205 H 181 H 186 H (70-99) mg/dL 08/18/21 Range/Units 07:26 POC Glucose 139 H (70-99) mg/dL Med Orders - Current: Current Medications Acetaminophen (Acetaminophen 500 Mg Tab) 500 mg PO Q4H PRN PRN Reason: Pain (mild 1-3) Last Admin: 08/17/21 22:57 Dose: 500 mg Documented by: Ascorbic Acid (Ascorbic Acid 500 Mg Tab) 500 mg PO DAILY [facility] Last Admin: 08/18/21 08:45 Dose: 500 mg Documented by: Aspirin (Aspirin 81 Mg Tab.Ec) 81 mg PO DAILY [facility] Last Admin: 08/18/21 08:48 Dose: 81 mg Documented by: Calcium Carbonate (Calcium Carbonate/Vitamin D3 1250 Mg-5 Mcg Tab) 1 tab PO DAILY [facility] Last Admin: 08/18/21 08:46 Dose: 1 tab Documented by: Calcium Carbonate/Glycine (Calcium Carbonate 500 Mg Tab.Chew) 500 mg PO Q4H PRN PRN Reason: Heartburn Ciprofloxacin (Ciprofloxacin 500 Mg Tab) 250 mg PO BID [facility] Stop: 08/22/21 23:00 Last Admin: 08/18/21 08:48 Dose: 250 mg Documented by: Dextrose/Water (50% Dextrose In Water 50 Ml Syringe) 50 ml IVPUSH Q15M PRN PRN Reason: Hypoglycemia Docusate Sodium (Docusate Sodium 100 Mg Cap) 100 mg PO BID PRN PRN Reason: Constipation Last Admin: 08/17/21 20:20 Dose: 100 mg Documented by: Duloxetine HCl (Duloxetine 30 Mg Cap) 30 mg PO DAILY [facility] Last Admin: 08/18/21 08:48 Dose: 30 mg Documented by: Enoxaparin Sodium (Enoxaparin 40 Mg/0.4 Ml Syringe) 40 mg SUBCUT DAILY [facility] Last Admin: 08/18/21 08:50 Dose: 40 mg Documented by: Glucagon (Glucagon,Human Recombinant 1 Mg Vial) 1 mg IM Q15M PRN PRN Reason: Hypoglycemia Insulin Glargine (Insulin Glarg,Human.Rec.Analog 100 Unit/Ml) 37 unit SUBCUT DAILY [facility] Last Admin: 08/17/21 09:25 Dose: 37 unit Documented by: Insulin Human Lispro (Insulin Lispro 100 Units/Ml 3 Ml Vial) 0 unit SUBCUT WITHMEALSANDBED [facility]; Protocol Last Admin: 08/17/21 21:12 Dose: 1 unit Documented by: Magnesium Hydroxide (Magnesium Hydroxide 400 Mg/5 Ml Susp 30 Ml Cup) 30 ml PO DAILY PRN PRN Reason: Constipation Last Admin: 08/17/21 20:20 Dose: 30 ml Documented by: Meclizine HCl (Meclizine 12.5 Mg Tab) 25 mg PO Q12H PRN PRN Reason: vertigo Multivitamins/Minerals/Vitamin C (Multivitamin Tab) 1 tab PO DAILY [facility] Last Admin: 08/18/21 08:46 Dose: 1 tab Documented by: Ondansetron HCl (Ondansetron 4 Mg/2 Ml Sdv) 4 mg IVPUSH Q6H PRN PRN Reason: Nausea/Vomiting Polyethylene Glycol (Polyethylene Glycol 3350 Powder 17 Gm Packet) 17 gm PO DAILY PRN PRN Reason: Constipation Discontinued Medications Ceftriaxone Sodium (Ceftriaxone 1 Gm Vial) Confirm Administered Dose 1 gm .ROUTE .[facility] Stop: 08/14/21 19:47 Last Admin: 08/14/21 20:11 Dose: Not Given Documented by: Sodium Chloride (Normal Saline) 500 mls @ 500 mls/hr IV .BOLUS [facility] Last Infusion: 08/14/21 18:03 Dose: Infused Documented by: Ceftriaxone Sodium 1 gm/ (Sodium Chloride) 50 mls @ 100 mls/hr IV Q24H [facility] Last Admin: 08/16/21 19:51 Dose: 100 mls/hr Documented by: Meclizine HCl (Meclizine 12.5 Mg Tab) 25 mg PO ONETIME ONE Stop: 08/14/21 14:51 Last Admin: 08/14/21 14:59 Dose: 25 mg Documented by: - Exam Quality Assessment: Denies: Supplemental Oxygen General: Reports: Alert, Cooperative HEENT: Reports: EOMI Neck: Reports: Supple Lungs: Reports: Clear to Auscultation, Normal Respiratory Effort Cardiovascular: Reports: Regular Rate, Regular Rhythm GI/Abdominal Exam: Soft, Non-Tender Skin: Reports: Warm Neurological: Reports: No New Focal Deficit Psy/Mental Status: Reports: Alert, Normal Affect, Normal Mood
[2021-08-18 10:57] VITALS: BP 118/56; PULSE 68
== END 2021-08-18 10:00 | DRG 690 ==
LOC: DL.ED 12:30 → DL.MS 15:33 → OBSVTOIN 08-15 16:26
PROVIDERS: ADMIT Internal Medicine; ATTEND Internal Medicine
DX: N39.0 Urinary tract infection, site not specified (principal); R42 Dizziness and giddiness; B96.1 Klebsiella pneumoniae [K. pneumoniae] as the cause of diseases classified elsewhere; Z88.8 Allergy status to other drugs, medicaments and biological substances; Z79.82 Long term (current) use of aspirin; H54.7 Unspecified visual loss; Z79.899 Other long term (current) drug therapy; Z66 Do not resuscitate; Z91.81 History of falling; Z20.822 Contact with and (suspected) exposure to COVID-19; R82.71 Bacteriuria; E11.9 Type 2 diabetes mellitus without complications; Z79.4 Long term (current) use of insulin; Z98.42 Cataract extraction status, left eye; Z98.41 Cataract extraction status, right eye; Z90.49 Acquired absence of other specified parts of digestive tract
CPT/HCPCS: 36415; 70450; 80053; 81001; 82947; 83735; 84484; 85025; 87086; 87088; 87186; 93005; 96365; 96372; 97110-GO; 97110-GP; 97116-GP; 97161-GP; 97166-GO; 97530-GO; 97530-GP; 99285-25; A9270-GY; G0378; J0696; J1650; J1815-GY; J7040; U0002